=== PATIENT | female | born 1990 | race Caucasian/White ===

== ENCOUNTER 2017-12-01 18:07 | Inpatient (IN) | payer MEDICAID ==
[~2017-12-01] VITALS: Ht 154.9 cm; Wt 52.4 kg
[2017-12-01 18:11] VITALS: BP_SYST 135
[2017-12-01 18:29] LABS: BILIRUBIN,URINE NEGATIVE (NEGATIVE); BLOOD, URINE NEGATIVE (NEGATIVE); CLARITY/URINE CLEAR (CLEAR); COLOR,URINE YELLOW (YELLOW); GLUCOSE,URINE NEGATIVE (NEGATIVE); KETONES,URINE NEGATIVE (NEGATIVE); LEUKOCYTE ESTERASE ,URINE NEGATIVE (NEGATIVE); NITRITE, URINE NEGATIVE (NEGATIVE); PH,URINE 5.5 (5.0-8.0); PROTEIN URINE NEGATIVE (NEGATIVE); UROBILINOGEN,URINE 0.2 (0.2-1.0)
[2017-12-01] MEDS ORDERED: ONDANSETRON HCL 4 MG/2 ML VIAL IVP ONE ×2 (18:45→19:30)
[2017-12-01] MEDS ORDERED: KETOROLAC TROMETHAMINE 30 MG VIAL IVP ONE (18:45)
[2017-12-01] MEDS ORDERED: NACL 0.9% 1,000 ML IV ONE (18:45)
[2017-12-01 19:16] LABS: BASOPHILS # (AUTO) 0.1 K/uL (0.0-0.2); BASOPHILS % (AUTO) 0.8 % (0.0-2.0); EOSINOPHILS # (AUTO) 0.2 K/uL (0.0-0.4); HEMATOCRIT 36.2 % (36-48); HEMOGLOBIN 12.5 g/dL (12.0-16.0); LYMPHOCYTES # (AUTO) 1.8 K/uL (1.0-5.5); LYMPHOCYTES % (AUTO) 23.1 % (20.5-51.5); MEAN CORPUSCULAR HEMOGLOBIN 29 pg (27-31); MEAN CORPUSCULAR HGB CONC 35 % (32-36); MEAN CORPUSCULAR VOLUME 83 fL (79.0-98.0); MONOCYTES # (AUTO) 0.5 K/uL (0.0-1.0); MONOCYTES % (AUTO) 6.1 % (1.7-9.3); NEUTROPHILS # (AUTO) 5.4 K/uL (1.8-7.7); PLATELET COUNT (AUTO) 228 K/uL (130-430); RED BLOOD CELL COUNT(AUTO) 4.36 MIL/uL (4.2-6.2)
[2017-12-01 19:23] LABS: CALCIUM 8.6 mg/dL (8.4-11.0); CREATININE 0.65 mg/dL (0.55-1.30); POTASSIUM 3.3 mmol/L (3.5-5.1)
[2017-12-01 19:28] LABS: ALBUMIN 3.7 g/dL (3.4-4.8); TOTAL BILIRUBIN 0.3 mg/dL (0.0-1.0)
[2017-12-01] MEDS ORDERED: MORPHINE 4 MG/ML INJ. SYRINGE IVP ONE (19:30)
[2017-12-01] MEDS ORDERED: cefTRIAXone 1 GM IVPB PREMIX 50 ML IV ONE (21:15)
[2017-12-01] MEDS ORDERED: HYDROmorphone 1 MG INJ. 1 MG/ML AMPUL IVP ONE (21:30)
[2017-12-01 21:50] VITALS: BP_SYST 107
[2017-12-01] MEDS ORDERED: D5/0.45 NS 1,000 ML IV SCH (21:56)
[2017-12-01] MEDS ORDERED: ACETAMINOPHEN 325 MG TABLET PO PRN (22:00)
[2017-12-01] MEDS ORDERED: HYDROcodone/ACETAMIN 5-325 MG TAB (NORCO/ VICODIN) PO PRN (22:00)
[2017-12-01] MEDS ORDERED: MORPHINE 4 MG/ML INJ. SYRINGE IVP PRN (22:00)
[2017-12-01] MEDS ORDERED: HYDROcodone/ACETAMIN 10-325 MG TAB PO PRN (22:00)
[2017-12-01] MEDS ORDERED: MORPHINE 2 MG/ML INJ. SYRINGE IVP PRN (22:00)
[2017-12-01] MEDS: D5/0.45 NS 1,000 ML IV SCH (22:08)
[2017-12-01 22:40] VITALS: BP_SYST 107
[2017-12-01] MEDS ORDERED: traZODone HCL 50 MG TABLET (DESYREL) PO PRN (23:30)
[2017-12-02] MEDS ORDERED: POTASSIUM CHLORIDE 20 MEQ TAB.PRT.SR PO SCH
[2017-12-02] MEDS: LORazepam 2 MG/ML VIAL IVP PRN (02:21)
[2017-12-02] MEDS: D5/0.45 NS 1,000 ML IV SCH ×2 (06:01→18:42)
[2017-12-02 07:22] LABS: CALCIUM 8.2 mg/dL (8.4-11.0); CREATININE 0.65 mg/dL (0.55-1.30); POTASSIUM 3.9 mmol/L (3.5-5.1)
[2017-12-02 07:25] LABS: BASOPHILS % (AUTO) 0.1 % (0.0-2.0); EOSINOPHILS # (AUTO) 0.1 K/uL (0.0-0.4); EOSINOPHILS % (AUTO) 1.7 % (0.0-4.0); HEMATOCRIT 32.9 % (36-48); HEMOGLOBIN 10.8 g/dL (12.0-16.0); LYMPHOCYTES # (AUTO) 1.9 K/uL (1.0-5.5); LYMPHOCYTES % (AUTO) 24.9 % (20.5-51.5); MEAN CORPUSCULAR HEMOGLOBIN 28 pg (27-31); MEAN CORPUSCULAR HGB CONC 33 % (32-36); MEAN CORPUSCULAR VOLUME 85 fL (79.0-98.0); MONOCYTES # (AUTO) 0.6 K/uL (0.0-1.0); MONOCYTES % (AUTO) 8.1 % (1.7-9.3); NEUTROPHILS # (AUTO) 5.2 K/uL (1.8-7.7); NEUTROPHILS % (AUTO) 65.2 % (40.0-70.0); PLATELET COUNT (AUTO) 185 K/uL (130-430); RED BLOOD CELL COUNT(AUTO) 3.85 MIL/uL (4.2-6.2); RED CELL DISTRIBUTION WIDTH 13.8 % (9.0-15.0); WHITE BLOOD COUNT (AUTO) 7.8 K/uL (4.8-10.8)
[2017-12-02 07:34] LABS: PHOSPHORUS 3.9 mg/dL (2.7-4.5); TOTAL BILIRUBIN 0.2 mg/dL (0.0-1.0)
[2017-12-02 08:00] VITALS: BP_SYST 108
[2017-12-02] MEDS: HYDROmorphone 1 MG INJ. 1 MG/ML AMPUL IVP PRN ×2 (09:11→16:32)
[2017-12-02] MEDS: ONDANSETRON HCL 4 MG/2 ML VIAL IVP PRN ×2 (10:11→16:32)
[2017-12-02 12:18] VITALS: BP_SYST 115
[2017-12-02] MEDS ORDERED: FUROSEMIDE 40 MG/4 ML VIAL ONE (14:33)
[2017-12-02 16:30] VITALS: BP_SYST 152
[2017-12-02] MEDS ORDERED: PROMETHAZINE HCL 25 MG/ML AMP IVP PRN (19:15)
[2017-12-02 20:00] VITALS: BP_SYST 121
[2017-12-02] MEDS: cefTRIAXone 1 GM IVPB PREMIX 50 ML IV SCH (20:23)
[2017-12-03 00:20] VITALS: BP_SYST 99
[2017-12-03] MEDS: ONDANSETRON HCL 4 MG/2 ML VIAL IVP PRN ×2 (01:13→11:51)
[2017-12-03] MEDS: HYDROmorphone 1 MG INJ. 1 MG/ML AMPUL IVP PRN ×4 (01:13→18:11)
[2017-12-03] MEDS: LORazepam 2 MG/ML VIAL IVP PRN ×2 (03:28→21:04)
[2017-12-03] MEDS: D5/0.45 NS 1,000 ML IV SCH ×2 (03:29→14:06)
[2017-12-03 07:17] LABS: PROTHROMBIN TIME 10.2 SECS (9.5-12.5)
[2017-12-03 07:23] LABS: HEMATOCRIT 33.4 % (36-48); RED CELL DISTRIBUTION WIDTH 13.9 % (9.0-15.0)
[2017-12-03 07:29] LABS: ALBUMIN 3.2 g/dL (3.4-4.8); BILIRUBIN,DIRECT 0.1 mg/dL (0.0-0.3); CALCIUM 8.5 mg/dL (8.4-11.0); CREATININE 0.69 mg/dL (0.55-1.30); POTASSIUM 3.5 mmol/L (3.5-5.1); TOTAL BILIRUBIN 0.2 mg/dL (0.0-1.0)
[2017-12-03 07:41] LABS: BASOPHILS # (AUTO) 0.1 K/uL (0.0-0.2); BASOPHILS % (AUTO) 0.8 % (0.0-2.0); EOSINOPHILS # (AUTO) 0.2 K/uL (0.0-0.4); EOSINOPHILS % (AUTO) 2.8 % (0.0-4.0); HEMOGLOBIN 11.1 g/dL (12.0-16.0); LYMPHOCYTES # (AUTO) 2.1 K/uL (1.0-5.5); LYMPHOCYTES % (AUTO) 29.6 % (20.5-51.5); MEAN CORPUSCULAR HEMOGLOBIN 28 pg (27-31); MEAN CORPUSCULAR HGB CONC 33 % (32-36); MEAN CORPUSCULAR VOLUME 84 fL (79.0-98.0); MONOCYTES # (AUTO) 0.5 K/uL (0.0-1.0); MONOCYTES % (AUTO) 7.1 % (1.7-9.3); NEUTROPHILS # (AUTO) 4.1 K/uL (1.8-7.7); NEUTROPHILS % (AUTO) 59.7 % (40.0-70.0); PLATELET COUNT (AUTO) 194 K/uL (130-430); RED BLOOD CELL COUNT(AUTO) 3.98 MIL/uL (4.2-6.2); WHITE BLOOD COUNT (AUTO) 6.9 K/uL (4.8-10.8)
[2017-12-03 08:00] VITALS: BP_SYST 108
[2017-12-03 12:00] VITALS: BP_SYST 100
[2017-12-03] MEDS ORDERED: FUROSEMIDE 40 MG/4 ML VIAL IVP ONE (12:00)
[2017-12-03 15:05] VITALS: BP_SYST 92
[2017-12-03 20:00] VITALS: BP_SYST 114
[2017-12-03] MEDS: cefTRIAXone 1 GM IVPB PREMIX 50 ML IV SCH (20:51)
[2017-12-04] MEDS: D5/0.45 NS 1,000 ML IV SCH ×2 (02:45→10:51)
[2017-12-04 07:13] LABS: BASOPHILS # (AUTO) 0.1 K/uL (0.0-0.2); EOSINOPHILS # (AUTO) 0.2 K/uL (0.0-0.4); EOSINOPHILS % (AUTO) 2.8 % (0.0-4.0); HEMATOCRIT 32.8 % (36-48); HEMOGLOBIN 11.1 g/dL (12.0-16.0); LYMPHOCYTES # (AUTO) 1.8 K/uL (1.0-5.5); MEAN CORPUSCULAR HEMOGLOBIN 29 pg (27-31); MEAN CORPUSCULAR HGB CONC 34 % (32-36); MEAN CORPUSCULAR VOLUME 84 fL (79.0-98.0); MONOCYTES # (AUTO) 0.4 K/uL (0.0-1.0); MONOCYTES % (AUTO) 5.9 % (1.7-9.3); NEUTROPHILS # (AUTO) 3.7 K/uL (1.8-7.7); NEUTROPHILS % (AUTO) 60.3 % (40.0-70.0); PLATELET COUNT (AUTO) 185 K/uL (130-430); RED BLOOD CELL COUNT(AUTO) 3.89 MIL/uL (4.2-6.2); RED CELL DISTRIBUTION WIDTH 13.7 % (9.0-15.0); WHITE BLOOD COUNT (AUTO) 6.2 K/uL (4.8-10.8)
[2017-12-04 07:26] LABS: ALBUMIN 2.8 g/dL (3.4-4.8); BILIRUBIN,DIRECT 0.1 mg/dL (0.0-0.3); CALCIUM 8.4 mg/dL (8.4-11.0); CREATININE 0.55 mg/dL (0.55-1.30); POTASSIUM 3.4 mmol/L (3.5-5.1); TOTAL BILIRUBIN 0.2 mg/dL (0.0-1.0)
[2017-12-04 08:06] LABS: HEPATITIS A AB, IgM Negative (Negative); HEPATITIS B CORE AB, IgM Negative (Negative); HEPATITIS B SURFACE AG Negative (Negative)
[2017-12-04] MEDS: HYDROmorphone 1 MG INJ. 1 MG/ML AMPUL IVP PRN ×3 (08:16→16:21)
[2017-12-04] MEDS: ONDANSETRON HCL 4 MG/2 ML VIAL IVP PRN ×2 (10:51→16:30)
[2017-12-04 12:00] VITALS: BP_SYST 130
[2017-12-04] MEDS ORDERED: NAPR-1172 PO (13:07)
[2017-12-04 14:50] VITALS: BP_SYST 118
[2017-12-04 16:47] VITALS: BP_SYST 123
== END 2017-12-04 18:05 | disposition home or self-care (01) | DRG 465 ==
LOC: SED 18:07 → SMU 21:31
PROVIDERS: ADMIT Preventive Medicine Preventive Medicine/Occupational Environmental Medicine; ATTEND Preventive Medicine Preventive Medicine/Occupational Environmental Medicine
DX: N13.1 Hydronephrosis with ureteral stricture, not elsewhere classified (principal); E87.5 Hyperkalemia; K57.90 Diverticulosis of intestine, part unspecified, without perforation or abscess without bleeding; N85.2 Hypertrophy of uterus; N83.202 Unspecified ovarian cyst, left side; E87.6 Hypokalemia; F17.200 Nicotine dependence, unspecified, uncomplicated; R03.0 Elevated blood-pressure reading, without diagnosis of hypertension; K76.9 Liver disease, unspecified; Z98.891 History of uterine scar from previous surgery
CPT/HCPCS: 36415; 76700-TC; 76830-TC; 76856-TC; 76857; 78708; 80053; 80074; 80076; 81003; 81025; 82248-TC; 83690-TC; 83735-TC; 84100-TC; 85025; 85610-TC; 87040-TC; 96365; 96375; 99285; A9562; J0696; J1170; J1885; J1940; J2060; J2270; J2405; J2550; J7030

== ENCOUNTER 2019-06-12 18:40 | Emergency (ER) | payer SELFPAY ==
[~2019-06-12] VITALS: Ht 154.9 cm; Wt 44.5 kg
[~2019-06-12 18:40] MED LIST: NAPR-1172 PO
[2019-06-12 18:52] VITALS: BP_SYST 111
--- NOTE | 2019-06-12 18:52 | NUR ---
Patient to ER bed 5 to gown for evaluation. Side rails up.
--- NOTE | 2019-06-12 19:03 | NUR ---
PT CAME TO ER WITH L FLANK PAIN 12/02 FOR 4 DAYS WITH NO RELIEF. SHE IS AO4, IN [facility] AWAITING MD AT THIS TIME.
--- NOTE | 2019-06-12 19:05 | NUR ---
UYEN Alvarez at bedside examining patient.
--- NOTE | 2019-06-12 19:15 | NUR ---
RECEIVED FROM JORDIN KO. WILL CONTINUE CARE.
[2019-06-12 19:31] LABS: BILIRUBIN,URINE NEGATIVE (NEGATIVE); BLOOD, URINE NEGATIVE (NEGATIVE); CLARITY/URINE CLEAR (CLEAR); COLOR,URINE YELLOW (YELLOW); GLUCOSE,URINE NEGATIVE (NEGATIVE); KETONES,URINE NEGATIVE (NEGATIVE); LEUKOCYTE ESTERASE ,URINE NEGATIVE (NEGATIVE); NITRITE, URINE NEGATIVE (NEGATIVE); PROTEIN URINE NEGATIVE (NEGATIVE); UROBILINOGEN,URINE 0.2 (0.2-1.0)
[2019-06-12 19:47] VITALS: BP_SYST 111
--- NOTE | 2019-06-12 19:47 | NUR ---
Patient given written and verbal discharge instructions and verbalizes understanding. ER MD discussed with patient the results and treatment provided. Patient in stable condition. ID arm band removed. Rx of Tramadola and Naproxen given. Patient educated on pain management and to follow up with PMD. Opportunity for questions provided and answered. Medication side effect fact sheet provided.
== END 2019-06-12 19:47 | disposition home or self-care (01) ==
LOC: SED 18:40
DX: R10.9 Unspecified abdominal pain (principal)
CPT/HCPCS: 81003; 99283